=== PATIENT | female | born 1960 | race Hispanic/Latino ===

== ENCOUNTER → 2019-06-25 | Outpatient (CLI) | payer OTHER ==
[~2019-06-25] MED LIST: PANTOPRAZOLE SO40 MG PO
--- NOTE | 2019-06-25 10:38 | Diagnostic Imaging Report ---
Right upper quadrant abdominal ultrasound, 06/25/2019. History: Abnormal liver function test. Comparison: None available. Discussion: Transverse and longitudinal images of the right upper quadrant of the abdomen were obtained. The liver is normal in size measuring 14.5 cm in length along the right midclavicular line. There is increased echotexture of the liver. A 3.2 x 2.2 x 4.0 cm anechoic cyst is identified in the left lobe of the liver.. The portal vein is patent with hepatopetal flow and is within normal limits measuring 8 mm in diameter. The biliary tree is within normal limits with the common bile duct measuring 2 mm in diameter. The gallbladder is normal without evidence of stones, wall thickening, or pericholecystic fluid. The sonographic Jeter's sign was negative. The right kidney is normal in size and echogenicity without evidence of hydronephrosis, stones, or mass and measures 10.3 cm in length. The pancreatic body and proximal tail are visualized and are normal in appearance. The abdominal aorta is within normal limits. There is no evidence of free fluid. IMPRESSION: 1. Increased echogenicity of the liver compatible with hepatic steatosis. 2. Left liver cyst. Signed by: William Burns MD on 06/25/2019 10:36 AM
== END ==
LOC: US 07:40
PROVIDERS: ATTEND Internal Medicine Gastroenterology
DX: R74.8 Abnormal levels of other serum enzymes (principal); R94.5 Abnormal results of liver function studies
CPT/HCPCS: 76705